=== PATIENT | male | born 1955 | race Caucasian/White ===

== ENCOUNTER 2019-07-23 10:47 | Emergency (ER) | payer OTHER, SELFPAY ==
[2019-07-23 10:49] VITALS: BP 137/91; PULSE 89; RESP 16; TEMP 36.8; O2SAT 96; BMI 27.3
--- NOTE | 2019-07-23 10:59 | ED.DCSUM_ITS ---
- ER Visit Summary Date of Service: 07/23/19 Chief Complaint: Laceration History of Present Illness: The patient is a [address] Trammell. He is right-hand dominant. Tetanus is up-to-date. 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 He reports that he has an aching pain meds 5 out of 10 at worst and 3-10 currently. Is worsened by movement relieved by rest. Denies any paresthesias distally. Physical Examination: Vitals: Stable. Afebrile. General: Well-nourished and well-developed. Head: Normocephalic atraumatic. Neck: Supple, no lymphadenopathy. No JVD. Nontender. Cardiovascular: Regular rate and rhythm. No murmurs. Respiratory: No respiratory distress. Clear to auscultation bilaterally. Abdominal: Soft, nontender, nondistended, normal bowel sounds. No guarding, rebound, or peritoneal signs. Back: Nontender. Extremities: Nontender, no edema. 4 cm laceration on the medial side of his right wrist. No active bleeding. He is neurovascular intact distally. Skin: Normal color, no rash. Neurologic: Alert and oriented ?3. Cranial nerves II through XII are intact. Normal strength and sensation. Psych: Normal affect. Emergency Department Course and Treatment: Patient refused pain medications. He has been anesthetized and repaired. He tolerated this well. Treatment Plan: Patient be discharged instructions follow-up Dr. Pena in 10 to 14 days for suture removal. Return to the emergency department for any worsening symptoms. Disposition: To home in improved and stable condition. Impression: 1. Laceration right wrist, 4 cm, repaired. Procedure note: Wound was cleansed with chlorhexidine soap. Anesthetized with 1% lidocaine wit hout epinephrine. Copiously irrigated with normal saline. Wound was explored there is no foreign material present. It was closed with 5 simple interrupted 4- 0 ethilon sutures. The patient tolerated it well. This note was generated with [employer] dictation software. It may contain incorrect words, spelling, and punctuation that were not noted in review of the chart prior to signing ED Disposition - Plan for ED Patient: Instructions: LACERATION, Extrem (Suture, Staple or Tape) Referrals: Butch Trammell MD [Primary Care Provider] - 10-14 Days suture removal
== END 2019-07-23 12:07 | disposition home or self-care (01) ==
PROVIDERS: Emergency Provider Emergency Medicine; PCP Family Medicine
DX: S61.511A Laceration without foreign body of right wrist, initial encounter (principal); W26.8XXA Contact with other sharp object(s), not elsewhere classified, initial encounter; Y93.89 Activity, other specified; Z72.0 Tobacco use
CPT/HCPCS: 12002; 99283

== ENCOUNTER 2023-04-25 06:54 | Emergency (ER) | payer MEDICARE, SELFPAY ==
[2023-04-25 06:55] VITALS: BP 149/103; PULSE 88; RESP 16; TEMP 36.4; O2SAT 96; BMI 24.3
--- NOTE | 2023-04-25 07:15 | EKG12_ITS ---
Test Reason : anxiety Blood Pressure : / mmHG Vent. Rate : 068 BPM Atrial Rate : 068 BPM P-R Int : 140 ms QRS Dur : 074 ms QT Int : 394 ms P-R-T Axes : 069 -33 049 degrees QTc Int : 418 ms Normal sinus rhythm Left axis deviation Cannot rule out Inferior infarct , age undetermined Abnormal ECG Confirmed by HAKEEM JONES, REBECCA ([id number]), managing editor ROBBIE MEDINA ([id number]) on 05/02/2023 10:47:04 AM Referred By: Confirmed By:REBECCA PALACIO MD
--- NOTE | 2023-04-25 07:16 | EX.ED.DYSGE1 ---
HPI History of Present Illness Chief Complaint: Anxiety Narrative Narrative: 67-year-old male who denies significant past medical history presents with generalized anxiety that he started feeling this morning when he woke up. He denies any suicidal ideation or hallucinations, states he is not really stressed out about anything. He lives at home with his 97-year-old uncle who is independent. He is not stressed out about taking care of him because he does not really need help. He is employed as an [employer] company. He states he is not really stressed out about work. States he just feels anxious and he noticed his blood pressure was 130/90 this morning. He denies any chest pain or shortness of breath, no headache, no palpitations. He has never really had problems with anxiety in the past. PFSH PFSH Home Medications tamsulosin 0.4 mg capsule 0.4 mg PO DAILY 04/08/14 [History Last Taken Unknown] NONE 04/25/23 [History Last Taken Unknown] hydroxyzine pamoate 25 mg capsule (Vistaril) 25 mg PO BID PRN anxiety #20 caps 04/25/23 [Rx Last Taken Unknown] Allergy/AdvReac Type Severity Reaction Status Date / Time No Known Allergies Allergy Verified 04/25/23 07:00 Social History Smoking Status: Current every day smoker tobacco type: cigarettes ROS ROS ED ROS Narrative Constitutional: No fever, no chills. HEENT: No sore throat. No neck pain. No loss of vision. No rhinorrhea. Cardiovascular: No chest pain. No palpitations. No pedal edema. Respiratory: No cough, no shortness of breath. Abdominal: No abdominal pain. No nausea. No vomiting. Genitourinary: No dysuria. No hematuria. Musculoskeletal: No myalgias. No arthralgias. Neurologic: No headaches. No dizziness. No lightheadedness. Skin: No rash. No change in color. Psychiatric: No depression. Mild anxiety. EXAM Physical Exam Narrative Exam Narrative: Afebrile. Vital signs noted. HEENT: Normocephalic. Atraumatic. PERRL, EOMI. Neck soft and supple. No point tenderness or step off. Cardiovascular: Regular rate and rhythm. No murmurs, rubs, or gallops appreciated. Respiratory: No tachypnea. Lungs clear to auscultation bilaterally. Gastrointestinal: Abdomen soft, nontender, with normoactive bowel sounds. No rebound or guarding. Neurological: Awake. Alert. Nonfocal, nonlateralizing. Skin: No rash. Normal color. No pallor. Musculoskeletal: No pedal edema. Full range of motion extremities. Psychiatric: No nervousness, no obvious anxiety. No suicidal ideation or homicidal ideation. No active hallucinations or internal stimulation noted. Normal thought content. Const Vital Signs: 04/25/23 06:55 Temperature 97.5 F L Temperature Source Temporal Pulse Rate 88 Respiratory Rate 16 Blood Pressure 149/103 H Blood Pressure Mean 118 Pulse Ox 96 Oxygen Delivery Method Room Air MDM MDM MDM Narrative Medical decision making narrative: Patient was reassured regarding his borderline blood pressure of 130/90 at home. It is slightly elevated here at 149/103. I do feel that there may be some anxiety component to this. I do not feel that laboratory work is indicated but I will have an EKG performed to rule out any dysrhythmia or STEMI. Patient did state that after his blood pressure reading, he became more anxious because he was not sure what the numbers were. EKG obtained and interpreted by myself independently as normal sinus rhythm at 68 bpm without ectopy or acute ST changes. No STEMI. Patient was reassured. He has asymptomatic hypertension currently. Additionally, patient states he has a follow-up appointment with a primary care provider. I do not feel he needs emergent psychiatric evaluation. I discussed with him the use of Vistaril instead of a benzodiazepine on a trial basis. He will be given a note to be off work today. I feel he can be discharged safely home with follow-up. He was told that he should also keep a log of his blood pressures for his primary care provider. Smoking cessation was also discussed. As he is currently asymptomatic without chest pain or shortness of breath, I feel he can be discharged, and that he does not require an antihypertensive medication or admission currently. Return instructions to the emergency department were reviewed. Disposition is discharged home in stable condition. History & Record Review Additional record(s) reviewed:: Prior ED visit Discharge Plan Triage Chief Complaint: Anxiety ED Provider: [facility] Dx/Rx/DC Orders Clinical Impression: Anxiety, Blood pressure elevated without history of HTN Instructions: ED Anxiety Reaction, ED Hypertension, To Be Confirmed Prescriptions: New hydroxyzine pamoate [Vistaril] 25 mg capsule 25 mg PO BID PRN (Reason: anxiety) Qty: 20 0RF No Action tamsulosin 0.4 MG capsule 0.4 mg PO DAILY Hold Instructions: MD Ordered NONE Stand Alone Forms: ED Work / School Excuse Primary Care Provider: Butch Trammell Referrals: Butch Trammell MD [Primary Care Provider] - 3-5 Days if not improving Activity Restrictions/Additional Instructions: Keep a log of your blood pressures and only take it once or twice a day, and follow-up with your primary care provider. Disposition Disposition: Home, Self Care
[2023-04-25 07:43] VITALS: BP 156/82; PULSE 86; RESP 16; O2SAT 100
== END 2023-04-25 07:44 | disposition home or self-care (01) ==
LOC: ED 07:38
PROVIDERS: Emergency Provider Emergency Medicine; Visit Provider Emergency Medicine
DX: F41.9 Anxiety disorder, unspecified (principal); R03.0 Elevated blood-pressure reading, without diagnosis of hypertension; F17.210 Nicotine dependence, cigarettes, uncomplicated
CPT/HCPCS: 93005; 99283

== ENCOUNTER → 2024-09-17 | Outpatient (CLI) | payer MEDICARE, SELFPAY ==
[2024-09-17 10:24] LABS: Absolute Lymphocyte Count 2.01 X10^3/uL (0.83-4.51); Absolute Neutrophil Count 4.3 X10^3/uL (2.0-7.7); Basophil# 0.04 X10^3/uL; Basophil% 0.5 % (0-1); Eosinophil# 0.09 X10^3/uL; Eosinophils% 1.2 % (0-5); Hematocrit 50.3 % (40-54); Hemoglobin 17.1 g/dL (13.0-16.5); Lymphocyte # 2.01 X10^3/ul (0.83-4.51); Lymphocyte % 26.7 % (19-41); Mean Corpuscular Hgb 30.2 pg (27.0-32.0); Mean Corpuscular Volume 88.7 fL (80-94); Mean Platelet Vol. 10.2 fl (6.2-12.0); Monocyte% 13.3 % (0-10); NRBC Flagged by Analyzer 0 % (0-5); Neutrophil # 4.32 X10^3/uL (2.7-7.7); Neutrophil % 57.5 % (47-70); Platelet Count 297 K/mm3 (150-450); RBC Distribution Width CV 12.9 % (11.6-14.6); RBC Distribution Width SD 42.2 fl (35.1-43.9); Red Blood Count 5.67 M/mm3 (4.6-6.2); White Blood Count 7.5 K/mm3 (4.4-11.0)
[2024-09-17 15:31] LABS: ALB/GLOB Ratio 1.1 RATIO (0.9-2.4); AST(SGOT) 37 U/L (<=37); Alanine Aminotransfer ALT/SGPT 43 U/L (<=46); Albumin, Serum 3.9 g/dL (3.4-4.8); Alkaline Phosphatase 80 U/L (40-129); Anion Gap 14 (5-15); BUN 19 mg/dL (4-19); BUN/Creat Ratio 21.5 RATIO (10-20); Carbon Dioxide 20.1 mmol/L (21.0-32.0); Chloride 104 mmol/L (98-108); Cholesterol 134 mg/dL (<=200); Creatinine, Serum 0.89 mg/dL (0.70-1.20); EST Glomerular Filtration Rate 94 (>60); Globulin 3.7 g/dL (2.2-4.2); Glucose 95 mg/dL (70-99); High Density Lipoprotein 34 mg/dL; Low Density Lipoprotein Calc. 84 mg/dL; Potassium 4.1 mmol/L (3.3-5.1); Protein, Total 7.6 g/dL (5.9-8.4); Sodium Level 138 mmol/L (133-145); Total Bilirubin 0.43 mg/dL (0.00-1.30); Triglycerides 82 mg/dL; Very Low Density Lipoprotein 16 mg/dL (5-40); cholesterol:hdl ratio screen 3.95
[2024-09-17 17:29] LABS: Ferritin 363 ng/mL (37-417); PSA,Total - Annual Screen 1.87 ng/mL (0.02-4.00); Vitamin B12 1619 pg/mL (180-914); Vitamin D,25 Hydroxy 26.9 ng/mL (30-100)
[2024-09-17 17:41] LABS: Iron 34 ug/dL (65-175)
== END | disposition home or self-care (01) ==
LOC: MTLAB 07:50
PROVIDERS: PCP Nurse Practitioner Family; Referring Provider Nurse Practitioner Family; Visit Provider Nurse Practitioner Family
DX: I10 Essential (primary) hypertension (principal); E55.9 Vitamin D deficiency, unspecified; E78.5 Hyperlipidemia, unspecified; E03.9 Hypothyroidism, unspecified; E61.1 Iron deficiency; R53.83 Other fatigue; R19.7 Diarrhea, unspecified; Z12.5 Encounter for screening for malignant neoplasm of prostate
CPT/HCPCS: 36415; 80053; 80061; 82306; 82607; 82728; 83540; 83630; 84153; 84439; 84443; 85025; 87177; 87209; 87493; 87506; G0103

== ENCOUNTER 2024-10-14 09:12 | Day surgery (SDC) | payer MEDICARE, SELFPAY ==
[2024-10-14] VITALS (7 sets, daily range): BP systolic 97–147; BP diastolic 77–106; PULSE 69–81; RESP 12–18; TEMP 36.1–36.3; O2SAT 98–99; BMI 25.4
[2024-10-14] MEDS: Lactated Ringers 1,000 ML 15 ML IV (09:42)
--- NOTE | 2024-10-14 10:00 | PCM.PRE.AN2 ---
ASA Classification* ASA Classification ASA Classification: 2 Assessment & Plan Anesthesia* Anesthesia Assessment Anesthesia Assessment: Discussed sedation and/or anesthesia options, risks, benefits, and alternatives with patient/parents/legal guardian/POA. Questions invited. The patient/parents/legal guardian/POA seems to understand and agrees to proceed with anesthesia plan. Reviewed the physical assessment, medical history, allergy history and patient home medications list prior to surgery/procedure/anesthetic and documented any changes. Performed airway and anesthesia risk assessments. Anesthesia Type Anesthesia Type: MAC History Source History Obtained from:: Patient and Chart Anesthesia Focused Assessment* Temperature: 97.2 F Pulse Rate: 69 Blood Pressure: 147/106 Respiratory Rate: 18 Pulse Ox: 99 Oxygen Delivery Method: Room Air Airway Assessment Mouth opens: >3 cm Mallampati Score: III Teeth Condition: Intact Neck Range of motion (ROM): Full ROM Focused Labs Anesthesia Preop lab: CBC WBC 7.5 K/mm3 (4.4-11.0) 09/17/24 07:56 09/17/24 RBC 5.67 M/mm3 (4.6-6.2) 09/17/24 07:56 09/17/24 Hgb 17.1 g/dL (13.0-16.5) H 09/17/24 07:56 09/17/24 Hct 50.3 % (40-54) 09/17/24 07:56 09/17/24 Plt Count 297 K/mm3 (150-450) 09/17/24 07:56 09/17/24 CHEMISTRY Potassium 4.1 mmol/L (3.3-5.1) 09/17/24 07:56 09/17/24 Sodium 138 mmol/L (133-145) 09/17/24 07:56 09/17/24 BUN 19 mg/dL (4-19) 09/17/24 07:56 09/17/24 Creatinine 0.89 mg/dL (0.70-1.20) 09/17/24 07:56 09/17/24 Glucose 95 mg/dL (70-99) 09/17/24 07:56 09/17/24 TSH 2.180 uIU/mL (0.300-4.200) 09/17/24 07:56 09/17/24 COAG Pre-Assessment Diagnosis/Proposed Procedure Planned Operative Procedure(s): COLONOSCOPY Anesthesia History 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 When Was Last Pacemaker Check QUESTION #4 FULL TEXT: You/Your Family Experience fever (hyperthermia) with Anesthesia Last Oral Intake Last Oral intake: Last Oral Intake NPO since 0000 Meds taken in AM with sips of water? 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 Female No 10/09/24 09:10 HX of Motion Sickness No 10/09/24 09:10 HX of N/V After Surgery No 10/09/24 09:10 Non-Smoker No 10/09/24 09:10 Duration of Surgery greater No 10/09/24 09:10 than 60 minutes Number of Risk Factors PONV Score Height & Weight Height & Weight: Anesthesia: Height & Weight Height 5 ft 8 in 10/14/24 09:33 Weight: 76 kg 10/14/24 09:33 Body Mass Index (BMI) 25.4 10/14/24 09:33 Respiratory Assessment Respiratory Assessment - aviation safety equipment technician: Respiratory Tract Infection Hx - aviation safety equipment technician Hx Respiratory Tract Infection No 10/09/24 09:10 STOP Sleep Apnea STOP Sleep Apnea - aviation safety equipment technician: STOP Sleep Apnea - aviation safety equipment technician Hx Hypertension Yes 10/09/24 09:10 Hx Sleep Apnea No 10/09/24 09:10 CPAP BIPAP Do you snore loudly (louder No 10/09/24 09:10 than talking or can be heard Do you often feel tired/ No 10/09/24 09:10 fatigued/ sleepy during daytime? Has anyone observed you stop No 10/09/24 09:10 breathing during sleep? STOP Results Negative 10/09/24 09:10 QUESTION #5 FULL TEXT : Do you snore loudly (louder than talking or can be heard through closed doors)? 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 Specify any problems Hx of Preganancy in last 3 N/A 10/09/24 09:10 Months Nurse Filling Out Transfusion VLEHMAN 10/09/24 09:10 & Questions: Date: 10/09/24 10/09/24 09:10 Time: 09:16 10/09/24 09:10 Patient unable to answer at this time (ie. confused, unrespo /Reproduction History /Reproductive History - aviation safety equipment technician: /Reproductive Hx- aviation safety equipment technician Hx Now No 10/09/24 09:10 Gestational Age (in weeks): EDC: Hx Hx Para Hx Section SAB Active Medications Active Medications: Current Medications Generic Name Dose Route Start Last Admin Trade Name Freq PRN Reason Stop Dose Admin Lactated Ringer's 1,000 mls @ 15 mls/hr 10/14/24 09:30 10/14/24 09:42 IV 15 mls/hr .Q48H MADAI Administration PFSH Medical History Prostate disease Low iron History of renal disease Gastric reflux Smoker HTN (hypertension) Diarrhea Bloating Home Medications ?Medication ?Instructions ?Recorded ?Last Taken ?Type tamsulosin 0.4 mg capsule 0.4 mg PO DAILY 04/08/14 Unknown History cholecalciferol (vitamin D3) 25 25 mcg PO QDAY 09/24/24 Unknown History mcg (1,000 unit) capsule ferrous sulfate 325 mg (65 mg 325 mg PO QDAY 09/24/24 Unknown History iron) tablet Allergy/AdvReac Type Severity Reaction Status Date / Time No Known Allergies Allergy Verified 10/14/24 09:32 Family History Father Diabetes Mother Hypertension Surgical History History of lithotripsy History of knee surgery History of colonoscopy Social History Smoking Status: Current every day smoker tobacco type: cigarettes quit status: quit date established Review of Systems (Anesthesia) ROS Narrative System reviewed and no additional complaints, except as documented.
--- NOTE | 2024-10-14 10:30 | COLBX_PTH ---
PATIENT: JD SANDOVAL LOC: EN U#:[id number] AGE/SX: 68/M ROOM: RE10/14/[address]: Dr. Alfred Spivey MD : 1955 BED: DIS: 10/14/2024 SPEC #: [id number] RECD: 10/15/24 09:36 STATUS: TIKI RETia #: [id number] MOHAN: 10/14/24 10:[address]: Alfred Spivey DEPT: SURGICAL PATHOLOGY RECD BY: Philip Michelle ENTERED: 10/15/24 10:47 SP TYPE: COLON BX OTHR DR: Gabriela Goldberg, [employer]NAGER-C Tissues: A - Sigmoid colon biopsy B - Rectum, NOS Procedures: Surgery Specimen Level IV HEADER OPERATION: Colonoscopy polyp biopsy PRE-OP DIAGNOSIS: Diarrhea, polyp TISSUE SUBMITTED: A- Sigmoid polyp biopsy x2, B- Rectal polyp biopsy MICROSCOPIC DIAGNOSIS A. Sigmoid colon, polyp x 2, biopsy: * Tubular adenoma * Hyperplastic polyps B. Rectum, polyp, biopsy: * Tubular adenoma * Hyperplastic polyp MICROSCOPIC DESCRIPTION Slides are reviewed. GROSS DESCRIPTION A. Received in formalin in a container labeled with the patient's name, date of , and sigmoid polyp biopsy x 2 are multiple bucio-pink fragments of mucosal tissue measuring 0.8 x 0.5 x 0.3 cm in aggregate. Submitted in toto in A1. B. Received in formalin in a container labeled with the patient's name, date of , and rectal polyp biopsy are multiple bucio-pink fragments of mucosal tissue measuring 0.9 x 0.6 x 0.3 cm in aggregate. Submitted in toto in B1. [facility] 10-15-2024 CPT:89688i8
--- NOTE | 2024-10-14 11:16 | HP.PCM_ITS ---
HPI - General General Date of Admission: 10/14/24 Date of Service: 10/14/24 Chief Complaint: Colonoscopy HPI Narrative The patient is a 68-year-old male who is being seen today for colonoscopy. He states that his last colonoscopy was about 10 to 15 years ago. He does not recall any polyps being noted at that time. He states that for the past 5 years or so he has been having some increasing issues with abdominal bloating and diarrhea. He attempted to change his diet and this does not seem to be making any significant difference. He is being referred today to be evaluated to discuss colonoscopy. He denies any blood in the stools. No family history of colon polyps or colon cancers. [facility] Medical History Prostate disease Low iron History of renal disease Gastric reflux Smoker HTN (hypertension) Diarrhea Bloating Home Medications ?Medication ?Instructions ?Recorded ?Last Taken ?Type tamsulosin 0.4 mg capsule 0.4 mg PO DAILY 04/08/14 Unk nown History cholecalciferol (vitamin D3) 25 25 mcg PO QDAY 5 Unknown History mcg (1,000 unit) capsule ferrous sulfate 325 mg (65 mg 325 mg PO QDAY 09/24/24 Unknown History iron) tablet Allergy/AdvReac Type Severity Reaction Status Date / Time No Known Allergies Allergy Verified 10/14/24 09:32 Family History Father Diabetes Mother Hypertension Surgical History History of lithotripsy History of knee surgery History of colonoscopy Social History Smoking Status: Current every day smoker (Patient smoked today.) tobacco type: cigarettes quit status: quit date established Vital Signs Vital Signs Vital Signs: 10/14/24 09:33 10/14/24 09:33 10/14/24 10:05 Temperature 97.2 F L 97.2 F L Temperature Source Temporal Pulse Rate 69 69 Respiratory Rate 18 18 Respiratory Pattern Normal Blood Pressure 147/106 H 147/106 H Blood Pressure Mean 119 Blood Pressure Source Monitor Blood Pressure Position Sitting Blood Pressure Location Left Arm Pulse Ox 99 99 Oxygen Delivery Method Room Air Room Air Weight Weight: 167 lb 8.821 oz Body Mass Index (BMI) 25.4 Physical Exam Const alert, oriented x3 and no apparent distress Assessment & Plan Assessment/Plan (1) Diarrhea: QUALIFIERS: Diarrhea type: unspecified type Qualified Code(s): R19.7 - Diarrhea, unspecified PLAN: Plan Plan for colonoscopy as planned today
--- NOTE | 2024-10-14 12:03 | PCM.POST.ANE ---
Anesthesia: Postop Eval I Current Vital Signs Temperature: 97.3 F Pulse Rate: 72 Blood Pressure: 98/77 Respiratory Rate: 16 Pulse Ox: 99 Oxygen Delivery Method: Room Air Assessment Airway patent: Yes Spontaneous unlabored respirations: Yes Mental status: Asleep nausea: No Vomiting: No Anesthesia Complication: No Fluid Hydration Crystalloid volume administer (ml): 700 Total IV fluid infused: 700 Progress Note Anesthesia document: Postop Eval 1 completed: Yes
--- NOTE | 2024-10-14 12:04 | OP.COLON_ITS ---
Patient Name: Adilson Cunha Procedure Date: 10/14/2024 11:05 AM Date of : 1955 Age: 68 Procedure: Colonoscopy Indications: Clinically significant diarrhea of unexplained origin Providers: Alfred Spivey MD Referring MD: Tiffanie Alexis Medicines: Monitored Anesthesia Care Patient Profile: Refer to note in patient chart for documentation of history and physical. Last Colonoscopy: more than 10 years ago. Complications: No immediate complications. Estimated blood loss: None. Procedure: Pre-Anesthesia Assessment: - Prior to the procedure, a History and Physical was performed, and patient medications and allergies were reviewed. The patient's tolerance of previous anesthesia was also reviewed. The risks and benefits of the procedure and the sedation options and risks were discussed with the patient. All questions were answered, and informed consent was obtained. Prior Anticoagulants: The patient has taken no anticoagulant or antiplatelet agents. ASA Grade Assessment: II - A patient with mild systemic disease. After reviewing the risks and benefits, the patient was deemed in satisfactory condition to undergo the procedure. After I obtained informed consent, the scope was passed under direct vision. Throughout the procedure, the patient's blood pressure, pulse, and oxygen saturations were monitored continuously. The colonoscope was introduced through the anus and advanced to the cecum, identified by appendiceal orifice and ileocecal valve. The ileocecal valve, appendiceal orifice, and rectum were photographed. The entire colon was well visualized. The colonoscopy was performed without difficulty. The patient tolerated the procedure well. The quality of the bowel preparation was adequate. Moderate Sedation: See the other procedure note for documentation of moderate sedation with intraservice time. Scope In: 11:30:02 AM Scope Withdrawal Time 0 hours 22 minutes 45 seconds Scope Out: 11:56:39 AM Total Procedure Duration Time 0 hours 26 minutes 37 seconds Findings: The perianal and digital rectal examinations were normal. A 4 mm polyp was found in the sigmoid colon. The polyp was semi-sessile. The polyp was removed with a cold biopsy forceps. Resection and retrieval were complete. Verification of patient identification for the specimen was done by the nurse using the patient's name, date and medical record number. Estimated blood loss was minimal. Three hyperplastic polyps were found in the rectum. The polyps were 2 to 3 mm in size. These polyps were removed with a cold biopsy forceps. Resection and retrieval were complete. Verification of patient identification for the specimen was done by the nurse using the patient's name, date and medical record number. Estimated blood loss was minimal. The exam was otherwise without abnormality. Impression: - One 4 mm polyp in the sigmoid colon, removed with a cold biopsy forceps. Resected and retrieved. - Three 2 to 3 mm polyps in the rectum, removed with a cold biopsy forceps. Resected and retrieved. - The examination was otherwise normal. Recommendation: - Discharge patient to home. - High fiber diet indefinitely. - Await pathology results. - Repeat colonoscopy in 5 years for surveillance. - Return to my office PRN. - Continue present medications. Procedure Code(s): --- Professional --- 54867, Colonoscopy, flexible; with biopsy, single or multiple Diagnosis Code(s): --- Professional --- D12.5, Benign neoplasm of sigmoid colon R19.7, Diarrhea, unspecified D12.8, Benign neoplasm of rectum CPT copyright 2021 [employer]. All rights reserved. The codes documented in this report are preliminary and upon piecer up review may be revised to meet current compliance requirements. Alfred Spivey MD 10/14/2024 12:03:37 PM This report has been signed electronically. Number of Addenda: 0 Note Initiated On: 10/14/2024 11:05 AM
--- NOTE | 2024-10-14 12:04 | OP.CCLET_ITS ---
10/14/2024 Tiffanie Alexis Re : Colonoscopy procedure for Adilson Cunha Dear Yusuf This procedure was performed on Monday, October 14, 2024. My impressions and recommendations are as follows: Impressions : - One 4 mm polyp in the sigmoid colon, removed with a cold biopsy forceps. Resected and retrieved. - Three 2 to 3 mm polyps in the rectum, removed with a cold biopsy forceps. Resected and retrieved. - The examination was otherwise normal. Recommendations : - Discharge patient to home. - High fiber diet indefinitely. - Await pathology results. - Repeat colonoscopy in 5 years for surveillance. - Return to my office PRN. - Continue present medications. My findings are described in the full procedure note, which is enclosed. If I can be of further assistance, please feel free to contact me at . Sincerely, Alfred Spivey MD 10/14/2024 12:03:37 PM This report has been signed electronically.
--- NOTE | 2024-10-14 13:25 | PCM.POSTANE2 ---
Anesthesia Postop Eval I Sum Postop Eval Completion status Anesthesia document: Postop Eval 1 completed: Yes Anesthesia Postop Eval I Summary Anesthesia Postop Eval I Summary: Anesthesia Postop Eval I: Assessment Summary Airway patent Yes 10/14/24 12:04 [email or web address] Spontaneous unlabored Yes 10/14/24 12:04 [email or web address] respirations Mental status Asleep 10/14/24 12:04 [email or web address] nausea No 10/14/24 12:04 [email or web address] Vomiting No 10/14/24 12:04 [email or web address] Anesthesia Postop Eval I: Fluid Summary Crystalloid volume administer 700 10/14/24 12:04 [email or web address] (ml) Colloids volume administered ( ml) Blood Product volume administered (ml) Total IV fluid infused 700 10/14/24 12:04 [email or web address] Anesthesia Postop Eval I: Summary Notes Anesthesia Complication No 10/14/24 12:04 [email or web address] Anesthesia Complication Comment: Post-operative progress note Anesthesia: Postop Eval II Evaluation Mental status: Awake and Calm Pain Level: 0 nausea: No Vomiting: No Complications Anesthesia Complication: No
== END 2024-10-14 12:35 | disposition home or self-care (01) ==
LOC: EN 09:12 → AC 09:14
PROVIDERS: PCP Nurse Practitioner Family; Referring Provider Nurse Practitioner Family; Visit Provider Surgery
PROC: 0DJD8ZZ Inspection of Lower Intestinal Tract, Via Natural or Artificial Opening Endoscopic (ICD-10-PCS; CPT 45378; principal; 2024-10-14 10:25)
DX: R19.7 Diarrhea, unspecified (principal); D12.8 Benign neoplasm of rectum; I10 Essential (primary) hypertension; D12.5 Benign neoplasm of sigmoid colon; F17.210 Nicotine dependence, cigarettes, uncomplicated; Z79.899 Other long term (current) drug therapy
CPT/HCPCS: 45380; 88305; J2405